=== PATIENT | female | born 1955 | race Caucasian/White ===

== ENCOUNTER 2016-12-29 09:33 | Emergency (ER) | payer MEDICAID ==
[2016-12-29 09:38] VITALS: BMI 27.4
[2016-12-29 09:46] VITALS: RESP 18; TEMP 98.1; O2SAT 98
--- NOTE | 2016-12-29 09:49 | ED PDOC ---
Arrival/HPI - General Historian: Patient - History of Present Illness Time/Duration: Other (2) Quality: Aching Context: Home - General Chief Complaint: Back Pain Time Seen by Provider: 12/29/16 09:42 - History of Present Illness Narrative History of Present Illness (Text): 12/29/16 09:48 61 year old female, Elizabeth Black, whose past medical history includes GERD, COPD, asthma, hypertension, depression, anxiety, and Type II Diabetes, presents to the emergency department c/o generalized abdominal pain, nausea x 2 days. Patient stated symptoms have worsen today. Denies fever, sob, cp, rectal bleeding, melena, urinary frequency, urgency, hematuria, vaginal discharge, vomiting, dizziness, or abnormal gait. (Mary Ann Bonds) Past Medical History - Provider Review Nursing Documentation Reviewed: Yes - Infectious Disease Hx of Infectious Diseases: None - Reproductive Menopause: Yes - Cardiac Hx Cardiac Disorders: Yes Hx Hypertension: Yes - Pulmonary Hx Respiratory Disorders: No - Neurological Hx Neurological Disorder: No - HEENT Hx HEENT Disorder: No - Renal Hx Renal Disorder: No - Endocrine/Metabolic Hx Endocrine Disorders: Yes Hx Diabetes Mellitus Type 2: Yes - Hematological/Oncological Hx Blood Disorders: No - Integumentary Hx Dermatological Disorder: No - Musculoskeletal/Rheumatological Hx Musculoskeletal Disorders: Yes Hx Arthritis: Yes (back) Hx Back Pain: Yes Hx Falls: No - Gastrointestinal Hx Gastrointestinal Disorders: Yes (gastritis) Hx Gall Bladder Disease: Yes Hx Gastroesophageal Reflux: Yes - Genitourinary/Gynecological Hx Genitourinary Disorders: Yes Hx Urinary Tract Infection: Yes - Psychiatric Hx Psychophysiologic Disorder: Yes Hx Anxiety: Yes Hx Depression: Yes Hx Substance Use: No - Surgical History Hx Cholecystectomy: Yes Other/Comment: tubal ligation, liposuction - Anesthesia Hx Anesthesia: Yes Hx Anesthesia Reactions: No Hx Malignant Hyperthermia: No Family/Social History - Physician Review Nursing Documentation Reviewed: Yes Family/Social History: No Known Family HX Smoking Status: Never Smoked Hx Alcohol Use: No Hx Substance Use: No Allergies/Home Meds Allergies/Adverse Reactions: Allergies No Known Allergies Allergy (Verified 03/01/16 02:57) Home Medications: Home Meds Medication Instructions Recorded Confirmed Gabapentin [Neurontin] 300 mg PO BID 03/01/16 12/29/16 LORazepam [Ativan] 0.5 mg PO DAILY 03/01/16 12/29/16 Omeprazole 20 mg PO DAILY 03/01/16 12/29/16 Ranitidine HCl [Zantac] 300 mg PO DAILY 03/01/16 12/29/16 Chlorthalidone [Hygroton] 1 tab PO DAILY 12/29/16 12/29/16 Lisinopril [Prinivil] 1 tab PO DAILY 12/29/16 12/29/16 Methocarbamol [Methocarbamol] 1 tab PO QID PRN 12/29/16 12/29/16 Review of Systems - Review of Systems Constitutional: Normal. absent: Fatigue, Weight Change, Fevers, Night Sweats Eyes: Normal ENT: Normal Respiratory: Normal. absent: SOB, Cough Cardiovascular: Normal. absent: Chest Pain, Palpitations Gastrointestinal: Abdominal Pain, Nausea. absent: Constipation, Diarrhea, Vomiting, Anorexia, Food Intolerance Genitourinary Female: absent: Dysuria, Frequency, Hematuria Musculoskeletal: Normal Skin: Normal. absent: Rash, Pruritis Neurological: Normal Endocrine: Normal Hemo/Lymphatic: Normal Psychiatric: Normal Physical Exam Temperature: Afebrile Blood Pressure: Normal Pulse: Regular Respiratory Rate: Normal Appearance: Positive for: Well-Appearing, Non-Toxic, Comfortable Pain Distress: None Mental Status: Positive for: Alert and Oriented X 3 - Systems Exam Head: Present: Atraumatic, Normocephalic Pupils: Present: PERRL Extroacular Muscles: Present: EOMI Conjunctiva: Present: Normal Mouth: Present: Moist Mucous Membranes Neck: Present: Normal Range of Motion. No: Meningeal Signs Respiratory/Chest: Present: Clear to Auscultation, Good Air Exchange. No: Respiratory Distress, Accessory Muscle Use, Wheezes, Retracting, Rhonchi Cardiovascular: Present: Regular Rate and Rhythm, Normal S1, S2. No: Murmurs Abdomen: Present: Tenderness (mild generalized abdominal tenderness), Normal Bowel Sounds, Scars. No: Distention, Peritoneal Signs, Rebound, Guarding, McBurney's Point Tender, Rovsing's Sign Present Back: Present: Normal Inspection Upper Extremity: Present: Normal Inspection, Normal ROM, NORMAL PULSES, Neurovascularly Intact, Capillary Refill < 2s. No: Cyanosis, Edema Lower Extremity: Present: Normal Inspection, NORMAL PULSES, Normal ROM, Neurovascularly Intact, Capillary Refill < 2 s. No: Edema, CALF TENDERNESS Neurological: Present: GCS=15, CN II-XII Intact, Speech Normal, Motor Func Grossly Intact, Normal Sensory Function, Normal Cerebellar Funct, Gait Normal Skin: Present: Warm, Dry, Normal Color. No: Rashes Psychiatric: Present: Alert, Oriented x 3 Medical Decision Making Re-evaluation Time: 12:41 Reassessment Condition: Re-examined, Improved - Lab Interpretations I have reviewed the lab results: Yes Interpretation: No clinic. lab abnormalty ED Course and Treatment: 12/29/16 13:00 I have reviewed with patient regarding the risk of tendonitis and tendon rupture with patient when taking Ciprofloxacin antibiotic. She is aware of this risk. She agrees with treatment plan. Patient understood to f/u private GI doctor and PMD, and to return to emergency if symptoms worsen. Re-evaluation. Patient feels better. Discussed results and plan with patient who expresses understanding. All questions answered and there is agreement with the plan to discharge home with instructions. Patient stable for discharge. Return if symptoms persist or worsen. (Mary Ann Bonds) I was available for consultation during PA evaluation. The chart was reviewed by me, and I agree with disposition. The documented history was done by the physician air surveillance operator. The documented physical exam was done by the physician air surveillance operator. The documented procedures were done by the physician air surveillance operator. (Fab Pollack) - Lab Interpretations Lab Results: 12/29/16 10:35 12/29/16 10:35 Lab Results 12/29/16 10:35: Sodium 139, Potassium 4.2, Chloride 102, Carbon Dioxide 25, Anion Gap 16, BUN 22 H, Creatinine 1.2, Est GFR ( Amer) 55, Est GFR (Non- Af Amer) 46, Random Glucose 243 H, Calcium 9.5, Total Bilirubin 0.6, AST 29, ALT 31, Alkaline Phosphatase 69, Total Protein 7.4, Albumin 4.1, Globulin 3.3, Albumin/Globulin Ratio 1.2, Amylase 82, Lipase 97 12/29/16 10:35: WBC 11.1 H, RBC 4.20, Hgb 12.1, Hct 36.7, MCV 87.4, MCH 28.8, MCHC 33.0, RDW 13.7, Plt Count 293, MPV 9.9, Gran % 73.8 H, Lymph % (Auto) 17.1 L, Heard % (Auto) 7.0 H, Eos % (Auto) 2.0, Baso % (Auto) 0.1, Gran # 8.18 H, Lymph # 1.9, Heard # 0.8 H, Eos # 0.2, Baso # 0.01 12/29/16 10:00: Urine Color Yellow, Urine Appearance Clear, Urine pH 6.0, Ur Specific [place] 1.020, Urine Protein Negative, Urine Glucose (UA) Negative, Urine Ketones Negative, Urine Blood Negative, Urine Nitrate Negative, Urine Bilirubin Negative, Urine Urobilinogen 0.2, Ur Leukocyte Esterase Negative - RAD Interpretation Narrative RAD Interpretations (Text): 12/29/16 12:42 Accession No. : [id number] Patient Name / ID : ROJAS HERNANDEZ / [id number] Exam Date : 12/29/2016 11:19:25 ( Approved ) Study Comment : Sex / Age : F / 61Y Creator : Marika Avila MD Dictator : Marika Avila MD Manager Labor Relations : Rotary Driller Helper : Marika Avila MD Approver2 : Report Date : 12/29/2016 12:39:05 My Comment : This report is currently processing and HAS NOT BEEN OFFICIALLY SIGNED BY THE PHYSICIAN - ESTIMATED TIME OF APPROVAL IS 12/29/2016 12:44. CT abdomen and pelvis with IV contrast Indication: None available. Technique: Contiguous axial images of the abdomen and pelvis. Coronal and Sagittal reformats generated and reviewed. Oral contrast was not administered. 100 mL Omnip[address] exam was performed using 1 or more of the falling dose reduction techniques: Automated exposure control, adjustment of the MAA and/or kV according to patient size, and/or use of iterative reconstruction technique. Radiation dose: Total exam DLP = 859.71 MGy-cm. Comparison: Renal ultrasound performed 01/20/16 Findings: No visible consolidation, pleural effusion, or pneumothorax. 5 mm left lower lobe pulmonary nodule (series 2, image 5). Limited visualization of the wake heart appears within normal limits of size. Prominent/bulbous appearance of the IVC similar to prior CT of the chest performed 03/01/16, nonspecific. Small to moderate hiatal hernia. The gallbladder is absent, presumably due to cholecystectomy however surgical clips are not evident. The liver, spleen, kidneys, pancreas, and adrenal glands appear unremarkable. The stomach is nondistended. Lack of oral contrast limits evaluation for bowel pathology. Wall thickening of the proximal transverse colon and portions of the right colon near the hepatic flexure may be exaggerated but underdistention however colitis (i.e. infectious, inflammatory, ischemic) cannot be entirely excluded. Small bowel loops appear thick walled particularly within the left upper quadrant may be due to enteritis. The bowel loops appear within normal limits of caliber without evidence of intestinal obstruction. There is no definite free air. The appendix appears within normal limits of caliber. No secondary signs of acute appendicitis. Uterus is present. The urinary bladder appears unremarkable. Osseous demineralization. Degenerative changes most prominent at L4-L5. Impression: 5 mm left lower lobe pulmonary nodule. Guidelines by the Fleischner society ( radiology 2005; 237:395-400) suggests that in patients with low risk for lung cancer, nodules from 5 mm to 6 mm in diameter should have follow-up in approximately 12 months. In patients with high-risk, such as those were smokers , follow-up is recommended in 6 months. Patients with a known malignancy or risk for metastases should receive 3 month follow-up. Small bowel loops appear thick walled particularly within the left upper quadrant, may be related to enteritis. Wall thickening of the proximal transverse colon and portions of the right colon near the hepatic flexure may be exaggerated but underdistention however colitis (i.e. infectious, inflammatory, ischemic) cannot be entirely excluded. Small to moderate hiatal hernia. Additional findings as above. (Mary Ann Bonds) Radiology Orders: 12/29/16 10:08 ABD & PELVIS IV CONTRAST ONLY [CT] Stat - Medication Orders Current Medication Orders: Discontinued Medications Ciprofloxacin (Cipro) 500 mg PO ONCE STA PRN Reason: Protocol Stop: 12/29/16 12:48 Famotidine (Pepcid) 20 mg IVP STAT STA Stop: 12/29/16 10:07 Last Admin: 12/29/16 10:35 Dose: 20 mg Sodium Chloride (Sodium Chloride 0.9%) 500 mls @ 1,000 mls/hr IV .Q30M STA Stop: 12/29/16 10:35 Last Admin: 12/29/16 10:35 Dose: 1,000 mls/hr Iohexol (Omnipaque 350 100 Ml) Confirm Administered Dose 350 mg .ROUTE .STK-MED ONE Stop: 12/29/16 11:20 Metronidazole (Flagyl) 500 mg PO STAT STA PRN Reason: Protocol Stop: 12/29/16 12:53 Morphine Sulfate (Morphine) 2 mg IVP STAT STA Stop: 12/29/16 10:07 Last Admin: 12/29/16 10:40 Dose: 2 mg Ondansetron HCl (Zofran Inj) 4 mg IVP STAT STA Stop: 12/29/16 10:07 Last Admin: 12/29/16 10:37 Dose: 4 mg Ondansetron HCl (Zofran Inj) 4 mg IVP STAT STA Stop: 12/29/16 12:53 Disposition/Present on Arrival - Present on Arrival Any Indicators Present on Arrival: No History of DVT/PE: No History of Uncontrolled Diabetes: Yes Urinary Catheter: No History of Decub. Ulcer: No History Surgical Site Infection Following: None - Disposition Have Diagnosis and Disposition been Completed?: Yes Disposition Time: 13:13 Patient Plan: Discharge - Disposition Diagnosis: Lung nodule < 6cm on CT, Enteritis, Colitis, Abdominal pain Disposition: HOME/ ROUTINE Patient Problems: Current Active Problems Problem Status Onset Abdominal pain Acute Colitis Acute Enteritis Acute Lung nodule < 6cm on CT Acute Condition: IMPROVED Discharge Instructions (ExitCare): Colitis (ED) Additional Instructions: Call private Gastroenetrologist doctor and private doctor for follow up visit in 1-2 days. Take medication as instructed. You will need to have a dedicated CT chest to evaluate lung nodule. Take medication as instructed. Return to emergency if symptoms worsen Prescriptions: Ciprofloxacin HCl [Cipro] 500 mg PO BID #14 tablet metroNIDAZOLE [Flagyl] 500 mg PO BID #14 tab Ondansetron ODT [Zofran ODT] 4 mg PO Q4H PRN #15 odt PRN Reason: Nausea/Vomiting oxyCODONE/Acetaminophen [Percocet 5/325 mg Tab] 1 ea PO TID PRN #10 tab PRN Reason: Pain, Severe (8-10) Referrals: PCP,NO [Primary Care Provider] - Follow up with primary Shaheen Torres MD [Staff Provider] - Follow up with primary [facility] [Outside] - Follow up with primary [facility] [Outside] - Follow up with primary Forms: [employer] ([place])
[2016-12-29] MEDS ORDERED: Morphine 2 mg/ml ISec IVP STA (10:06)
[2016-12-29] MEDS ORDERED: Sodium Chloride 0.9% 500 ML IV STA (10:06)
[2016-12-29 10:23] LABS: URINE BILIRUBIN NEGATIVE (NEGATIVE); URINE BLOOD NEGATIVE (NEGATIVE); URINE GLUCOSE (UA) NEGATIVE (NEGATIVE); URINE LEUKOCYTE ESTERASE NEGATIVE Leu/uL (NEGATIVE); URINE NITRATE NEGATIVE (NEGATIVE); URINE PROTEIN NEGATIVE mg/dL (<30 mg/dL); URINE UROBILINOGEN 0.2 E.U./dL (<1 E.U./dL)
[2016-12-29 10:24] LABS: URINE APPEARANCE CLEAR (CLEAR); URINE COLOR YELLOW (YELLOW)
[2016-12-29 10:55] LABS: BASO # 0.01 K/mm3 (0.0-2.0); BASO % 0.1 % (0.0-3.0); EOS # 0.2 (0.0-0.7); GRAN # 8.18 (1.4-6.5); GRAN % 73.8 % (50.0-68.0); HEMOGLOBIN 12.1 gm/dL (12.0-16.0); LYMPH # 1.9 (1.2-3.4); LYMPH % 17.1 % (22.0-35.0); MEAN CELL VOLUME 87.4 fL (80.0-105.0); MEAN CORPUSCULAR HEMOGLOBIN 28.8 pg (25.0-35.0); MEAN PLATELET VOLUME 9.9 fl (7.0-11.0); MONO # 0.8 (0.1-0.6); PLATELET COUNT 293 10^3/uL (120.0-450.0); RED CELL DISTRIBUTION WIDTH 13.7 % (11.5-14.5); WHITE BLOOD COUNT 11.1 10^3/ul (4.5-11.0)
[2016-12-29 11:15] LABS: ALB/GLOB RATIO 1.2 (1.1-1.8); ALBUMIN 4.1 g/dL (3.0-4.8); CALCIUM 9.5 mg/dL (8.4-10.5)
[2016-12-29] MEDS ORDERED: Iohexol 350 MG/100 ML VIAL ONE (11:19)
--- NOTE | 2016-12-29 12:40 | CT ---
CT abdomen and pelvis with IV contrast Indication: None available. Technique: Contiguous axial images of the abdomen and pelvis. Coronal and Sagittal reformats generated and reviewed. Oral contrast was not administered. 100 mL Omnipaque [address] exam was performed using 1 or more of the falling dose reduction techniques: Automated exposure control, adjustment of the MAA and/or kV according to patient size, and/or use of iterative reconstruction technique. Radiation dose: Total exam DLP = 859.71 MGy-cm. Comparison: Renal ultrasound performed 01/20/16 Findings: No visible consolidation, pleural effusion, or pneumothorax. 5 mm left lower lobe pulmonary nodule (series 2, image 5). Limited visualization of the wake heart appears within normal limits of size. Prominent/bulbous appearance of the IVC similar to prior CT of the chest performed 03/01/16, nonspecific. Small to moderate hiatal hernia. The gallbladder is absent, presumably due to cholecystectomy however surgical clips are not evident. The liver, spleen, kidneys, pancreas, and adrenal glands appear unremarkable. The stomach is nondistended. Lack of oral contrast limits evaluation for bowel pathology. Wall thickening of the proximal transverse colon and portions of the right colon near the hepatic flexure may be exaggerated but underdistention however colitis (i.e. infectious, inflammatory, ischemic) cannot be entirely excluded. Small bowel loops appear thick walled particularly within the left upper quadrant may be due to enteritis. The bowel loops appear within normal limits of caliber without evidence of intestinal obstruction. There is no definite free air. The appendix appears within normal limits of caliber. No secondary signs of acute appendicitis. Uterus is present. The urinary bladder appears unremarkable. Osseous demineralization. Degenerative changes most prominent at L4-L5. Impression: 5 mm left lower lobe pulmonary nodule. Guidelines by the Fleischner society (radiology 2005; 237:395-400) suggests that in patients with low risk for lung cancer, nodules from 5 mm to 6 mm in diameter should have follow-up in approximately 12 months. In patients with high-risk, such as those were smokers, follow-up is recommended in 6 months. Patients with a known malignancy or risk for metastases should receive 3 month follow-up. Small bowel loops appear thick walled particularly within the left upper quadrant, may be related to enteritis. Wall thickening of the proximal transverse colon and portions of the right colon near the hepatic flexure may be exaggerated but underdistention however colitis (i.e. infectious, inflammatory, ischemic) cannot be entirely excluded. Small to moderate hiatal hernia. Additional findings as above.
[2016-12-29 13:59] VITALS: BP 154/80; PULSE 72
== END 2016-12-29 14:18 | disposition home or self-care (01) ==
LOC: ED 09:33
DX: K52.9 Noninfective gastroenteritis and colitis, unspecified (principal); R91.8 Other nonspecific abnormal finding of lung field; I10 Essential (primary) hypertension; K21.9 Gastro-esophageal reflux disease without esophagitis
CPT/HCPCS: 74177; 80053; 81003; 82150; 83690; 85025; 87086; 96361; 96374; 96375; 99284; J2270; J2405; J7040; Q9967

== ENCOUNTER 2018-02-16 10:38 | Emergency (ER) | payer MEDICAID ==
[2018-02-16 10:38] VITALS: BMI 27.4
--- NOTE | 2018-02-16 11:13 | ED PDOC ---
Arrival/HPI - General Historian: Patient - History of Present Illness Time/Duration: < week Symptom Onset: Gradual Symptom Course: Worsening Quality: Burning <Gurwinder Liang - Last Filed: 02/16/18 12:40> <Teresita Baezamohan - Last Filed: 02/16/18 15:30> - General Chief Complaint: Female Genitourinary Time Seen by Provider: 02/16/18 10:59 - History of Present Illness Narrative History of Present Illness (Text): 02/16/18 11:13 Materials Planning Manager Used. Patient is a 62 year old female with a past medical history of DM II, HTN, Anxiety, Arthritis and UTIs presenting to the emergency room with a complaint of burning with urination for 6 days. Every time she has urinated over the past 6 days, she experiences an intense burning sensation. Over the past couple of days, she has started to notice suprapubic discomfort that is now radiating to her flanks b/l, worse on the R compared to L. She has been experiencing subjective fevers and chills, nausea but no vomiting. She has been eating less because of the nausea but was able to tolerate her breakfast this morning. She has had multiple UTIs in the past and states that she normally drinks cranberry juice and starts to feel better, but it did not happen this time. She has been experiencing diarrhea for the past couple of days. It switches between watery and loosely formed stools, approximately 2-3 times per day. Denies blood or melena. She has been feeling weak overall which is why she decided to come in to the emergency department today. Denies chest pain, shortness of breath, headaches, vision changes, lightheadedness, dizziness, numbness or tingling. PMH: DM II, HTN, Anxiety, Arthritis and UTIs PSH:Cholecystectomy, Tubal ligation, Liposuction Family: Denies. Social:Denies smoking, ETOH or drug abuse history. Allergies: NKDA (Gurwinder Liang) Past Medical History - Provider Review Nursing Documentation Reviewed: Yes - Infectious Disease Hx of Infectious Diseases: None - Cardiac Hx Cardiac Disorders: Yes Hx Hypertension: Yes - Pulmonary Hx Respiratory Disorders: No - Neurological Hx Neurological Disorder: No - HEENT Hx HEENT Disorder: No - Renal Hx Renal Disorder: No - Endocrine/Metabolic Hx Endocrine Disorders: Yes Hx Diabetes Mellitus Type 2: Yes - Hematological/Oncological Hx Blood Disorders: No - Integumentary Hx Dermatological Disorder: No - Musculoskeletal/Rheumatological Hx Musculoskeletal Disorders: Yes Hx Arthritis: Yes Hx Back Pain: Yes - Gastrointestinal Hx Gastrointestinal Disorders: Yes Hx Gall Bladder Disease: Yes Hx Gastroesophageal Reflux: Yes - Genitourinary/Gynecological Hx Genitourinary Disorders: Yes Hx Urinary Tract Infection: Yes - Psychiatric Hx Psychophysiologic Disorder: Yes Hx Anxiety: Yes Hx Depression: Yes Hx Substance Use: No - Surgical History Hx Cholecystectomy: Yes - Anesthesia Hx Anesthesia: Yes Hx Anesthesia Reactions: No Hx Malignant Hyperthermia: No <Gurwinder Liang - Last Filed: 02/16/18 12:40> Family/Social History - Physician Review Nursing Documentation Reviewed: Yes Family/Social History: No Known Family HX Smoking Status: Never Smoked Hx Alcohol Use: No Hx Substance Use: No <Gurwinder Liang - Last Filed: 02/16/18 12:40> Allergies/Home Meds <Gurwinder Liang - Last Filed: 02/16/18 12:40> <Carol Baeza - Last Filed: 02/16/18 15:30> Allergies/Adverse Reactions: Allergies No Known Allergies Allergy (Verified 02/16/18 10:40) Home Medications: Home Meds Medication Instructions Recorded Confirmed Gabapentin [Neurontin] 300 mg PO BID 03/01/16 02/16/18 Omeprazole 20 mg PO DAILY 03/01/16 02/16/18 Ranitidine HCl [Zantac] 300 mg PO DAILY 03/01/16 02/16/18 Chlorthalidone [Hygroton] 1 tab PO DAILY 12/29/16 02/16/18 Lisinopril [Prinivil] 1 tab PO DAILY 12/29/16 02/16/18 GlipiZIDE [Glucotrol] 10 mg PO BID 02/16/18 02/16/18 Review of Systems - Physician Review All systems were reviewed & negative as marked: Yes - Review of Systems Constitutional: Fatigue, Fevers, Other (chills) Eyes: Normal. absent: Vision Changes ENT: Normal. absent: Sore Throat Respiratory: Normal. absent: SOB, Cough Cardiovascular: Normal. absent: Chest Pain, Palpitations, PHIPPS Gastrointestinal: Abdominal Pain (suprapubic, radiating to flanks), Diarrhea, Nausea, Appetite Changes (decreased). absent: Constipation, Vomiting, Food Intolerance Genitourinary Female: Dysuria. absent: Frequency, Hematuria, Vaginal Bleeding, Vaginal Discharge Musculoskeletal: Back Pain (flank pain b/l) Skin: Normal. absent: Rash, Pruritis Neurological: Normal. absent: Headache, Dizziness Endocrine: Normal. absent: Diaphoresis Hemo/Lymphatic: Normal Psychiatric: Normal. absent: Anxiety, Depression <Gurwinder Liang - Last Filed: 02/16/18 12:40> Physical Exam Vital Signs Reviewed: Yes Temperature: Afebrile Blood Pressure: Hypertensive Pulse: Tachycardic Respiratory Rate: Normal Appearance: Positive for: Well-Appearing, Non-Toxic, Comfortable Pain Distress: None Mental Status: Positive for: Alert and Oriented X 3 - Systems Exam Head: Present: Atraumatic, Normocephalic Pupils: Present: PERRL Extroacular Muscles: Present: EOMI Conjunctiva: Present: Normal Mouth: Present: Moist Mucous Membranes Nose (External): No: Atraumatic Nose (Internal): Present: Normal Inspection, No Active Bleeding, Moist Respiratory/Chest: Present: Clear to Auscultation, Good Air Exchange. No: Respiratory Distress, Accessory Muscle Use Cardiovascular: Present: Regular Rate and Rhythm, Normal S1, S2, Peripheal Pulses Present. No: Murmurs Abdomen: Present: Tenderness (suprapubic), Normal Bowel Sounds. No: Distention , Peritoneal Signs, Rebound, Guarding Back: Present: CVA Tenderness (right sided). No: Midline Tenderness, Paraspinal Tenderness Upper Extremity: Present: Normal Inspection, NORMAL PULSES. No: Cyanosis, Edema Lower Extremity: Present: Normal Inspection, NORMAL PULSES. No: Edema, CALF TENDERNESS Neurological: Present: GCS=15, Speech Normal, Motor Func Grossly Intact Skin: Present: Warm, Dry, Normal Color. No: Rashes Psychiatric: Present: Alert, Oriented x 3, Normal Insight, Normal Concentration <Guriwnder Liang - Last Filed: 02/16/18 12:40> Vital Signs Temp Pulse Resp BP Pulse Ox 02/16/18 14:00 86 18 135/74 98 02/16/18 12:46 98 H 18 138/85 99 02/16/18 10:44 98.0 F 109 H 16 143/98 H 97 Medical Decision Making - Lab Interpretations I have reviewed the lab results: Yes <Gurwinder Liang - Last Filed: 02/16/18 12:40> <Carol Baeza - Last Filed: 02/16/18 15:30> ED Course and Treatment: 02/16/18 11:48 Healthy appearing female, moving around comfortably. Labs, Abd/Pelvis CT w/o, Toradol and Zofran Re-assess 02/16/18 12:43 Reviewed labs and abd/pelvis CT - no acute intra-abdominal pathology. UA unremarkable (Gurwinder Liang) 02/16/18 11:58 Patient is a 62 year old female presenting to the emergency department complaining of kidney pain. Patient Seen with Resident: In agreement with resident note which contains more details about the patient. Patient seen and evaluated with resident. Came up with plan and treatment together. 02/16/18 15:21 Pt describes painful dysuria and urinary urgency , denying vaginal pruritus nor other symptoms of vulvaginal candidiasis. Diarrhea is described as loose and watery . Pt will be given a trial of antiobitics as UTI may still be possible with sampling error. Uinr cultures will be followed and pyridium will be given for symptomatic cystitis. (Carol Baeza) - Lab Interpretations Lab Results: 02/16/18 11:30 02/16/18 11:30 Lab Results 02/16/18 11:30: Sodium 138, Potassium 4.1, Chloride 101, Carbon Dioxide 23, Anion Gap 18, BUN 15, Creatinine 1.2, Est GFR ( Amer) 55, Est GFR (Non- Af Amer) 45, Random Glucose 216 H, Calcium 9.4, Total Bilirubin 0.5, AST 25, ALT 19, Alkaline Phosphatase 70, Total Protein 7.8, Albumin 4.5, Globulin 3.3, Albumin/Globulin Ratio 1.4, Lipase 137 02/16/18 11:30: Urine Color Yellow, Urine Appearance Clear, Urine pH 6.0, Ur Specific [place] 1.015, Urine Protein Negative, Urine Glucose (UA) Negative, Urine Ketones Negative, Urine Blood Negative, Urine Nitrate Negative, Urine Bilirubin Negative, Urine Urobilinogen 0.2, Ur Leukocyte Esterase Negative 02/16/18 11:30: WBC 10.8, RBC 4.38, Hgb 12.5, Hct 38.3, MCV 87.4, MCH 28.5, MCHC 32.6, RDW 13.6, Plt Count 351, MPV 9.5, Gran % 73.6 H, Lymph % (Auto) 19.6 L, [place] % (Auto) 5.6, Eos % (Auto) 1.1 L, Baso % (Auto) 0.1, Gran # 7.94 H, Lymph # (Auto) 2.1, [place] # (Auto) 0.6, Eos # (Auto) 0.1, Baso # (Auto) 0.01 - RAD Interpretation Narrative RAD Interpretations (Text): 02/16/18 12:42 Abd/pelvis w/o: IMPRESSION: No evidence of nephrolithiasis or urolithiasis. No evidence of pyelonephritis. No acute intra-abdominal findings. (Gurwinder Liang) Radiology Orders: 02/16/18 11:26 ABDOMEN & PELVIS [ABD & PELVIS W/O PO OR IV CONT] [CT] Stat - Medication Orders Current Medication Orders: Discontinued Medications Ciprofloxacin (Cipro) 500 mg PO ONCE STA PRN Reason: Protocol Stop: 02/16/18 15:09 Last Admin: 02/16/18 15:19 Dose: 500 mg Sodium Chloride (Sodium Chloride 0.9%) 1,000 mls @ 999 mls/hr IV .Q1H1M STA Stop: 02/16/18 12:51 Last Admin: 02/16/18 12:23 Dose: 999 mls/hr eMAR Start Stop Document 02/16/18 12:23 EWO (Rec: 02/16/18 12:23 [facility] [id number]) Intravenous Solution Start Date 02/16/18 Start Time 12:23 End Date 02/16/18 End time 13:23 Total Infusion Time 60 Ketorolac Tromethamine (Toradol) 30 mg IVP STAT STA Stop: 02/16/18 11:50 Last Admin: 02/16/18 12:22 Dose: 30 mg MAR Pain Assessment Document 02/16/18 12:22 EWO (Rec: 02/16/18 12:23 [facility] [id number]) Pain Reassessment Is this a pain reassessment? No Sleep Is patient sleeping during reassessment? No Presence of Pain Presence of Pain Yes Pain Scale Used Pain Scale Used Numeric Location Pain Location Body Site Abdomen IVP Administration Document 02/16/18 12:22 EWO (Rec: 02/16/18 12:23 EWO [id number]) Charges for Administration # of IVP Administrations 1 Ondansetron HCl (Zofran Inj) 4 mg IVP STAT STA Stop: 02/16/18 11:50 Last Admin: 02/16/18 12:22 Dose: 4 mg IVP Administration Document 02/16/18 12:22 EWO (Rec: 02/16/18 12:22 EWO [id number]) Charges for Administration # of IVP Administrations 1 Phenazopyridine HCl (Pyridium) 200 mg PO STAT STA Stop: 02/16/18 15:09 Last Admin: 02/16/18 15:19 Dose: 200 mg <Gurwinder Liang - Last Filed: 02/16/18 12:40> - PA / MACHINING ENGINEER / Resident Statement MD/DO has reviewed & agrees with the documentation as recorded. MD/DO has examined the patient and agrees with the treatment plan. - Scribe Statement The provider has reviewed the documentation as recorded by the Scribe <Carol Baeza - Last Filed: 02/16/18 15:30> - Scribe Statement Laura Ruano All medical record entries made by the Scribe were at my direction and personally dictated by me. I have reviewed the chart and agree that the record accurately reflects my personal performance of the history, physical exam, medical decision making, and the department course for this patient. I have also personally directed, reviewed, and agree with the discharge instructions and disposition. (Carol Baeza) Disposition/Present on Arrival - Present on Arrival History of DVT/PE: No History of Uncontrolled Diabetes: Yes Urinary Catheter: No History of Decub. Ulcer: No History Surgical Site Infection Following: None <Gurwinder Liang - Last Filed: 02/16/18 12:40> - Present on Arrival Any Indicators Present on Arrival: Yes History of DVT/PE: No History of Uncontrolled Diabetes: Yes Urinary Catheter: No History of Decub. Ulcer: No History Surgical Site Infection Following: None - Disposition Have Diagnosis and Disposition been Completed?: Yes Disposition Time: 15:25 Patient Plan: Discharge <Carol Baeza - Last Filed: 09/15/18 15:30> - Disposition Diagnosis: Dysuria, Diarrhea Disposition: HOME/ ROUTINE Patient Problems: Current Active Problems Problem Status Onset Diarrhea Acute Dysuria Acute Condition: GOOD Discharge Instructions (ExitCare): Dysuria, Adult (DC), How to Avoid Traveler' s Diarrhea Print Language: CHINESE Additional Instructions: Por favor tyler mucho agua con estas medicamentos. Jennifer la antibiotica y recuerda con la pyridium henriquez urina va a tranforma en [place] perez y tu solamente jennifer esta medicamento para 2 ayala solamente . Prescriptions: Ciprofloxacin HCl [Cipro] 500 mg PO BID #6 tablet Phenazopyridine HCl [Pyridium] 100 mg PO TID PRN #6 tablet PRN Reason: Pain, Moderate (4-7) Referrals: Jesus Gutierrez MD [Primary Care Provider] - Follow up with primary Forms: KXEN (Namibian)
[2018-02-16 11:45] LABS: BASO # 0.01 K/mm3 (0.0-2.0); BASO % 0.1 % (0.0-3.0); EOS # 0.1 (0.0-0.7); EOS % 1.1 % (1.5-5.0); GRAN # 7.94 (1.4-6.5); GRAN % 73.6 % (50.0-68.0); HEMOGLOBIN 12.5 g/dL (12.0-16.0); LYMPH # 2.1 (1.2-3.4); LYMPH % 19.6 % (22.0-35.0); MEAN CELL VOLUME 87.4 fl (80.0-105.0); MEAN CORPUSCULAR HEMOGLOBIN 28.5 pg (25.0-35.0); MEAN CORPUSCULAR HGB CONC 32.6 g/dl (31.0-37.0); MEAN PLATELET VOLUME 9.5 fl (7.0-11.0); MONO # 0.6 (0.1-0.6); MONO % 5.6 % (1.0-6.0); RBC 4.38 10^6/uL (3.5-6.1); RED CELL DISTRIBUTION WIDTH 13.6 % (11.5-14.5); WHITE BLOOD COUNT 10.8 10^3/ul (4.5-11.0)
[2018-02-16 11:50] LABS: URINE BILIRUBIN NEGATIVE (NEGATIVE); URINE BLOOD NEGATIVE (NEGATIVE); URINE GLUCOSE (UA) NEGATIVE (NEGATIVE); URINE LEUKOCYTE ESTERASE NEGATIVE Leu/uL (NEGATIVE); URINE PROTEIN NEGATIVE mg/dL (<30 mg/dL); URINE UROBILINOGEN 0.2 E.U./dL (<1 E.U./dL)
[2018-02-16] MEDS ORDERED: Sodium Chloride 0.9% 1,000 ML IV STA (11:51)
[2018-02-16 11:54] LABS: URINE APPEARANCE CLEAR (CLEAR); URINE COLOR YELLOW (YELLOW)
[2018-02-16 11:55] LABS: ALB/GLOB RATIO 1.4 (1.1-1.8); ALBUMIN 4.5 g/dL (3.0-4.8); CALCIUM 9.4 mg/dL (8.4-10.5)
--- NOTE | 2018-02-16 12:13 | CT ---
Date of service: 02/16/2018 PROCEDURE: CT Abdomen and Pelvis without intravenous contrast HISTORY: r/o kidney stone/pyelo COMPARISON: None. TECHNIQUE: Without contrast.. Contrast dose: Radiation dose: Total exam DLP = 803 mGy-cm. This CT exam was performed using one or more of the following dose reduction techniques: Automated exposure control, adjustment of the mA and/or kV according to patient size, and/or use of iterative reconstruction technique. FINDINGS: LOWER THORAX: Unremarkable. LIVER: Unremarkable. No gross lesion or ductal dilatation. GALLBLADDER AND BILE DUCTS: Unremarkable. PANCREAS: Unremarkable. No gross lesion or ductal dilatation. SPLEEN: Unremarkable. ADRENALS: Unremarkable. No mass. KIDNEYS AND URETERS: Unremarkable. No hydronephrosis. No solid mass. VASCULATURE: Unremarkable. No aortic aneurysm. BOWEL: Unremarkable. No obstruction. No gross mural thickening. APPENDIX: Unremarkable. Normal appendix. PERITONEUM: Unremarkable. No free fluid. No free air. LYMPH NODES: Unremarkable. No enlarged lymph nodes. BLADDER: Unremarkable. REPRODUCTIVE: Unremarkable. BONES: No acute fracture. OTHER FINDINGS: None. IMPRESSION: No evidence of nephrolithiasis or urolithiasis. No evidence of pyelonephritis. No acute intra-abdominal findings.
[2018-02-16 12:47] VITALS: RESP 18
[2018-02-16 15:42] VITALS: BP 126/79; PULSE 72; TEMP 98.6; O2SAT 99
== END 2018-02-16 15:41 | disposition home or self-care (01) ==
LOC: ED 10:38
DX: R30.0 Dysuria (principal); R19.7 Diarrhea, unspecified; I10 Essential (primary) hypertension; E11.65 Type 2 diabetes mellitus with hyperglycemia
CPT/HCPCS: 74176; 80053; 81003; 83690; 85025; 87040; 87086; 96361; 96374; 96375; 99283; J1885; J2405; J7030